=== PATIENT | male | born 1955 | race Two or more races ===

== ENCOUNTER → 2022-09-20 | Emergency (ER) | payer OTHER ==
[~2022-09-20] VITALS: Ht 165.1 cm; Wt 78.0 kg
[~2022-09-20] MED LIST: LIPITOR40 M1
== END | disposition left against medical advice (07) ==
LOC: ER 16:46
DX: K21.9 Gastro-esophageal reflux disease without esophagitis (principal); K80.20 Calculus of gallbladder without cholecystitis without obstruction; K76.0 Fatty (change of) liver, not elsewhere classified; R18.8 Other ascites; N20.0 Calculus of kidney